=== PATIENT | female | born 2000 | race Caucasian/White ===

== ENCOUNTER 2020-07-05 02:57 | Emergency (ER) | payer OTHER ==
[2020-07-05] MEDS ORDERED: ACETAMINOPHEN 160 MG/5 ML *Children Solution PO ONE (04:02)
[2020-07-05] MEDS ORDERED: DEXAMETHASONE LIQUID 0.5 MG/5 ML PO ONE (04:02)
[2020-07-05 04:26] VITALS: BP 112/67; PULSE 89; TEMP 98.4; BMI 34.3
[2020-07-05] MEDS ORDERED: ACETAMINOPHEN 325 MG TABLET (FP) ONE (04:27)
[2020-07-05] MEDS ORDERED: DEXAMETHASONE SOD PHOSPHATE 10 MG/1 ML VIAL ONE (04:30)
[2020-07-05] MEDS ORDERED: DEXAMETHASONE 4 MG TABLET (FP) PO ONE (04:50)
[2020-07-05] MEDS ORDERED: LIDOCAINE VISCOUS 2% ORAL/TOP 20 ML UNIT-DOSE CUP MM ONE (04:50)
[2020-07-05] MEDS ORDERED: AMOX TR/POT CLAV 875MG/125MG TABLETS (FP) PO ONE (05:25)
[2020-07-05] MEDS ORDERED: AMOX TR/POT CLAV 875MG/125MG TABLETS (FP) ONE (05:27)
[2020-07-05] MEDS ORDERED: MAG HYDROX/AL HYDROX/SIMETH 30 ML UNIT-DOSE CUP ONE (05:28)
[2020-07-05] MEDS ORDERED: MAG HYDROX/AL HYDROX/SIMETH 30 ML UNIT-DOSE CUP PO ONE (05:29)
[2020-07-05] MEDS ORDERED: LIDOCAINE VISCOUS 2% ORAL/TOP 20 ML UNIT-DOSE CUP ONE (05:31)
[2020-07-05 14:46] LABS: THROAT:GRP A STREP Positive (Negative)
== END 2020-07-05 05:57 | disposition home or self-care (01) ==
LOC: JER 02:57
DX: J02.9 Acute pharyngitis, unspecified (principal)
CPT/HCPCS: 87070; 87077; 87880; 99284-25; C9803; U0003